=== PATIENT | female | born 1975 | race Caucasian/White ===

== ENCOUNTER 2020-04-12 19:31 | Emergency (ER) | payer OTHER, SELFPAY ==
[2020-04-12 19:45] VITALS: BP 142/85; PULSE 108; RESP 20; TEMP 36.4; O2SAT 99
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
== END 2020-04-12 20:06 | disposition home or self-care (01) ==
PROVIDERS: Emergency Provider Nurse Practitioner Adult Health
DX: L24.9 Irritant contact dermatitis, unspecified cause (principal)
CPT/HCPCS: 99213; G0463

== ENCOUNTER 2020-04-20 12:46 | Emergency (ER) | payer OTHER, SELFPAY ==
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
[2020-04-20 12:58] VITALS: BP 125/72; PULSE 109; RESP 20; TEMP 36.2; O2SAT 98
[2020-04-20 13:31] VITALS: PULSE 109; RESP 98
== END 2020-04-20 13:35 | disposition home or self-care (01) ==
PROVIDERS: Emergency Provider Nurse Practitioner Family
DX: R06.02 Shortness of breath (principal); F17.200 Nicotine dependence, unspecified, uncomplicated
CPT/HCPCS: 99213; G0463

== ENCOUNTER 2020-07-30 00:05 | Emergency (ER) | payer OTHER, SELFPAY ==
[2020-07-30 00:09] VITALS: BP 150/86; PULSE 86; RESP 20; TEMP 36.2; O2SAT 98
--- NOTE | 2020-07-30 00:51 | ED.SKABFB ---
HPI - Skin/Abscess/Foreign Bdy General Chief complaint: Skin/Abscess/Foreign Body Stated complaint: staph? lower R leg Time Seen by Provider: 07/30/20 00:21 History of Present Illness HPI narrative: Diffuse rash on all extremities for months. Very pruritic. She has been treated for scabies and dermatitis without resolution. She was also told that she may have bed bugs or ring worm. She reports that she has been staying with a friend and the house is very dirty. The friend seems to be unaffected. She has also developed 2 painful raised areas on the RLE. Related Data Home Medications Medication Instructions Recorded Confirmed triamcinolone acetonide applic TOPICAL 07/30/20 Allergies Allergy/AdvReac Type Severity Reaction Status Date / Time Penicillins Allergy Severe Rash, Verified 07/30/20 00:50 throat swells Review of Systems Review of Systems: All systems reviewed & are unremarkable except as noted in HPI and below Constitutional: Constitutional: Denies chills and Denies fever(s) Cardiovascular: Cardiovascular: Denies chest pain Respiratory: Respiratory: Denies dyspnea Gastrointestinal: Gastrointestinal: Denies nausea Integumentary/Breasts: Skin/Breast: Reports pruritus and Reports rash Neurologic: Reports system reviewed and no additional complaints, except as documented Allergic/Immunologic: Allergic/Immunologic: Denies lip swelling and Denies tongue swelling PMFSH Past Medical History Medical History Anxiety Chronic back pain Depression Surgical History Surgical History H/O adenoidectomy H/O tubal ligation History of hysterectomy Social History Social History Years smoked: 30 Smoking status: Current every day smoker Gender identity (if verbalized by the patient): Female Exam Const: General: no acute distress and alert Orientation/consciousness: patient oriented x3 HENMT: Head: normal to inspection Neck: Neck: normal visual inspection Resp: Effort & Inspection: normal respiratory effort Auscultation: clear to auscultation bilaterally Cardio: Rate: regular rate Rhythm: regular rhythm Skin: Other: She appears to have 3 seperate issues. Numerous heavily excoriated papules on all extremities. scaly mildly erythematous rash to feet. 2 raised erythematous areaes with central fluctuance on the RLE. Neuro: General: patient oriented x3, moves all extremities, no focal motor deficits and CN's II-XI intact bilaterally Gait exam (Neuro): Normal gait present Psych: Affect: Anxious affect present Course Vital Signs Vital signs: Vital Signs Temperature 36.2 C L 07/30/20 00:09 Pulse Rate 86 07/30/20 00:09 Respiratory Rate 20 07/30/20 00:09 Blood Pressure 150/86 H 07/30/20 00:09 Pulse Oximetry 98 07/30/20 00:09 Temperature 36.2 C L 07/30/20 00:09 Pulse Rate 78 07/30/20 02:05 Respiratory Rate 19 07/30/20 02:05 Blood Pressure 129/88 07/30/20 02:05 Pulse Oximetry 99 07/30/20 02:05 Procedures Abscess I/D lower extremity: Side (if applicable): right Local Anesthetic: lidocaine 1% and with epi Amount of anesthesia used (mL): 5 Technique: incised with #11 blade Amount of fluid expressed (mL): 3 Irrigation: Yes Packing used?: none I&D Results: Pus other: Local Anesthetic: lidocaine 1% and with epi Amount of anesthesia used (mL): 3 Technique: incised with #11 blade Amount of fluid expressed (mL): 1 Irrigation: Yes Packing used?: none I&D Results: Pus MDM - Skin/Abscess/Foreign Bdy MDM Narrative Medical decision making narrative: Primary rash most consistent with bed bug bites. Abscesses likely represent secondary infection. rash on feet appears to be tinea pedis. Medical Re
[2020-07-30] MEDS: MICONAZOLE NITRATE 2% CREAM 30 GM TUBE 1 APPLIC TOPICAL (01:16)
[2020-07-30 02:05] VITALS: BP 129/88; PULSE 78; RESP 19; O2SAT 99
== END 2020-07-30 02:05 | disposition home or self-care (01) ==
PROVIDERS: Emergency Provider Emergency Medicine
DX: L02.415 Cutaneous abscess of right lower limb (principal); L02.91 Cutaneous abscess, unspecified; B35.3 Tinea pedis; S40.862A Insect bite (nonvenomous) of left upper arm, initial encounter; S40.861A Insect bite (nonvenomous) of right upper arm, initial encounter; S80.862A Insect bite (nonvenomous), left lower leg, initial encounter; S80.861A Insect bite (nonvenomous), right lower leg, initial encounter; W57.XXXA Bitten or stung by nonvenomous insect and other nonvenomous arthropods, initial encounter; F17.200 Nicotine dependence, unspecified, uncomplicated
CPT/HCPCS: 10061; 99283; A9270

== ENCOUNTER 2024-09-27 02:03 | Emergency (ER) | payer OTHER, SELFPAY ==
--- OUTSIDE RECORDS SUMMARY | 2024-09-27 02:06 | XMS_ITS | Patient Health Record ---
Author Organization [facility] Address [address] [place] [address] Care Team Providers Care Management Manager Name Role Phone Newelissaarmaan Jaja Primary Care Provider [phone] Jeana Hemphill Unavailable [phone] Delmis Chiu Unavailable [phone] Ceferino Mendoza Unavailable [phone] Selene Acevedo Unavailable [phone] Allergies Allergen (clinical drug ingredient) Drug/Non Drug Allergy documented on EMR Reaction Allergy Type Onset Date Status amoxicillin amoxicillin (uncoded) anaphylaxis Allergy Active Latex latex (uncoded) skin burn/rash Allergy Active Results Component Value Reference Range Notes PDF Report Reviewed date:01/13/2024 11:38:57 AM Interpretation: Performing Lab:[facility], [address] [place] [address], Phone - [phone], Director - Adonay Notes/Report: PDF Report1 [facility] Comprehensive Drug Analysis, Urine Reviewed date:01/13/2024 11:39:42 AM Interpretation: Performing Lab:[facility], [address] [place] [address], Phone - [phone], Director - AtievaAnupam Notes/Report: Summary Report (Summary) FINAL ====== COMPREHENSIVE DRUG ANALYSIS,UR ====== Specimen Alert Note: Sample is inconsistent with human urine. ====== Test Result Flag Units NO DRUGS DETECTED. ====== Test Result Flag Units Ref Range Creatinine 21 mg/dL >=20 ====== For clinical consultation, please call . ====== PDF . PDF Report Reviewed date:05/01/2024 10:17:43 AM Interpretation: Performing Lab:[facility], [address] [place] [address], Phone - [phone], Director - Adonay Notes/Report: PDF Report1 [facility] Comprehensive Drug Analysis, Urine Reviewed date:05/01/2024 10:17:43 AM Interpretation:Abnormal Performing Lab:[facility], [address] [facility], Phone - [phone], Director - Adonay Notes/Report: Summary Report (Summary) FINAL ====== COMPREHENSIVE DRUG ANALYSIS,UR ====== Specimen Alert Note: Sample is inconsistent with human urine. ====== Test Result Flag Units NO DRUGS DETECTED. ====== Test Result Flag Units Ref Range Creatinine 110 mg/dL >=20 ====== For clinical consultation, please call . ====== PDF . Reason For Referral Reason Tool Analyst Diagnosis 1 Bipolar affective (F 31.9) Referral Organization [facility] Referring Provider First Name Delmis Referring Provider Last Name Aram Referring Provider Speciality Psychiatry Referred Provider Specialty Offal SeparatorAutomotive Glass Installer Notes Delmis Chiu Amanuel 08:26:14 PM > Client struggles with appointments, keeping up with medications, and multiple providers. She has mental health instability along with physical healthy instability. She would greatly benefit from assistance. Thank you., Ceferino Mendoza 06/07/2024 03:51:03 PM > Possibly a good candidate for Community Support, assess further and if needs are MH symptom based please complete CS Assessment and send to appropriate CS coordinator, Nava Pedroza 06/22/2024 11:25:18 AM > [facility] called client to discuss potential Community Support assistance. Client did not answer the phone, [facility] left a voicemail letting client know to call them back., Nava Pedroza 06/22/2024 04:15:16 PM > [facility] spoke with client and was able to fill out Community Support Needs assessment with them. [facility] sent the assessment referral to Annemarie Josue. Referral Priority Routine Reason Paperwork and Help a t Home Diagnosis 1 Bipolar affective (F 31.9) Referral Organization [facility] Referring Provider First Name Delmis Referring Provider Last Name Aram Referring Provider Speciality Psychiatry Referred Provider Specialty Offal SeparatorAutomotive Glass Installer Notes Delmis Chiu Amanuel 08/2024 02:23:08 PM > Client struggling with keeping and making various dr appts, keeping up with housework, taking care of herself. She has paperwork she is confused about r/t home-help. Thank you!, Selene Acevedo 07/12/2024 10:33:53 AM >Met with Christopher following appt with Delmis. Assisted in completion of her paperwork and provided to her for medical provider review and sign off. She is [facility] attributed, has significant medical comorbities and really struggles with medication management and social anxiety. Can [facility] provide additional support in connecting with [facility] for a patient educator and consider referral to [facility]? Clinical Notes Yessenia Real 03:00:55 PM >Sending to client's community support person assigned. Referral Priority Routine Medications Medication SIG (Take, Route, Frequency, Duration) Notes Start Date End Date Status Atorvastatin Calcium 20 MG 1 tablet Orally Once a day for 30 day(s) Active Insulin Glargine Solostar 100 UNIT/ML as directed Subcutaneous Unknown Albuterol Sulfate HFA Active linaGLIPtin 5 MG 1 tablet Orally Once a day Unknown Mavyret Unknown Pregabalin 100 MG 1 capsule Orally Once a day Active Albuterol-Budesonide Unknown Insulin Lispro Ambrosio KwikPen 75/25 Active Ketoconazole 2 % 1 application Externally Once a day Active Colace Not-Taking metFORMIN HCl 500 MG 1 tablet with a riaz l Orally twice a day Active Jardiance 25 MG 1 tablet in the morning Orally Once a day Active ALPRAZolam from a doctor in [place] Active Humira Not-Taking cloNIDine HCl 0.1 MG 1 tablet Orally twice a day for 30 days . Active QUEtiapine Fumarate ER 300 MG 1 tablet in the evening Orally Once a day for 30 days . Active traZODone HCl 100 MG 1-2 tablet at bedtime Orally Once a day for 30 days Active Adderall from a doctor in [place] Active Social History Tobacco Use: Social History Observation Description Date Details (start date - stop date) Current Smoker 05/10/1993 - NA Sex Assigned At : Social History Observation Description Sex Assigned At Female PRAPARE Question Answer Notes Date Completed/Updated: 06/14/2023 What is your current housing situation? I do not have housing (staying with others, in a hotel, in a fci, living outside on the street, on a beach, or in a park) Are you worried about losing your housing? No What is the highest level of school that you have finished? High school diploma or GED What is your current work situation? Unemployed and seeking work In the past year, have you o r any family members you live with been unable to get any of the following when it was really needed? Check all that apply I do not have problems meeting my needs Has lack of transportation k ept you from medical appointments, meetings, work or from getting things needed for daily living? No How often do you see or talk to people that you care about and feel close to? (For example: talking to friends on the phone, visiting friends or family, going to anabaptism or club meetings) 3 to 5 times a week How stressed are you? Stress is when someone feels tense, nervous, anxious, or can\t sleep at night because their mind is troubled Very much In the past year have you sp ent more than 2 nights in a row in a prison, nursing home, fci center, or juvenile correctional facility? No Are you a refugee? No What country are you from? [place] Do you feel physically and e motionally safe where you currently live? Yes In the past year, have you b een afraid of your partner or ex-partner? No PRAPARE Score: 7 Tobacco Control (Standard) Question Answer Notes Tobacco use: Current smoker When did you start smoking? 05/10/1993 How often do you smoke cigarettes? Every day How many cigarettes a day do you smoke? 5 or les s How soon after you wake up d o you smoke your first cigarette? 31-60 minutes Are you interested in quitting? Not ready to funmilayo t Additional Findings: Tobacco user Light cigarett e smoker (1-9 cigs/day) Problems Problem Type SNOMED Code ICD Code Onset Dates Problem Status W/U Status Risk Notes Problem Tobacco user (666692107) Nicotine dependence, unspecified, uncomplicated (F17.200) Active confirmed Problem Generalized anxiety disorder (53937502) Generalized anxiety disorder (F41.1) Active confirmed Problem Posttraumatic stress disorder (06855402) PTSD (post-traumatic stress disorder) (F43.10) Active confirmed Problem Overweight (408208115) Over weight (E66.3) Active confirmed Problem Alcohol use disorder (4940258951) Alcohol use disorder (F10.99) Active confirmed Problem Bipolar disorder (14734899) Bipolar affective (F31.9) Active confirmed Problem Sleep disturbance (47938145) Sleep disturbance, unspecified (G47.9) Active confirmed Problem Attention deficit hyperactivity disorder (022672533) Adult ADHD (F90.9) Active confirmed Vital Signs Heart Rate 124 /min 09/05/2024 Temperature 98.2 degrees Fahrenheit 08/08/2024 Respiratory Rate 16 /min 09/05/2024 Blood pressure diastolic 86 mm Hg 09/05/2024 Oximetry 98 % 09/05/2024 Height 65 in 09/05/2024 Blood pressure systolic 130 mm Hg 09/05/2024 Weight 184 lbs 09/05/2024 BMI 30.62 kg/m2 09/05/2024 Encounters Encounter Location Date Provider Diagnosis [facility] [address] [place] [address] 09/28/2023 Delmis Chiu Bipolar affective F31.9 ; Generalized anxiety disorder F41.1 ; PTSD (post-traumatic stress disorder) F43.10 ; Adult ADHD F90.9 ; Nicotine dependence, unspecified, uncomplicated F17.200 and Medication monitoring encounter Z51.81 [facility] [address] [place] [address] 10/19/2023 Delmis Chiu Generalized anxiety disorder F41.1 ; Medication monitoring encounter Z51.81 ; Bipolar affective F31.9 ; PTSD (post-traumatic stress disorder) F43.10 ; Adult ADHD F90.9 and Nicotine dependence, unspecified, uncomplicated F17.[address] [place] [address] 12/17/2023 Jeana Hemphill Bipolar affective F31.9 and Generalized anxiety disorder F41.[address] [facility] [address] 03/15/2024 Delmis Chiu Bipolar affective F31.9 ; Generalized anxiety disorder F41.1 and Sleep disturbance, unspecified G47.9 [facility] [address] [place] [address] 04/04/2024 Delmis Chiu Bipolar affective F31.9 ; Sleep disturbance, unspecified G47.9 and Generalized anxiety disorder F41.1 [facility] [address] [place] [address] 04/17/2024 Delmis Chiu Generalized anxiety disorder F41.1 [facility] [address] [place] [address] 05/02/2024 Delmis Chiu Bipolar affective F31.9 ; Sleep disturbance, unspecified G47.9 and Generalized anxiety disorder F41.1 [facility] [address] [place] [address] 05/30/2024 Delmis Chiu Bipolar affective F31.9 ; Sleep disturbance, unspecified G47.9 and Generalized anxiety disorder F41.1 [facility] [address] [place] [address] 07/11/2024 Delmis Chiu Bipolar affective F31.9 ; Sleep disturbance, unspecified G47.9 and Generalized anxiety disorder F41.1 [facility] [address] [place] [address] 07/11/2024 Selene Acevedo PTSD (post-traumatic stress disorder) F43.10 [facility] [address] [place] [address] 08/08/2024 Delmis Chiu Over weight E66.3 ; Bipolar affective F31.9 ; Sleep disturbance, unspecified G47.9 and Generalized anxiety disorder F41.1 [facility] [address] [place] [address] 09/05/2024 Delmis Chiu Sleep disturbance, unspecified G47.9 ; Bipolar affective F31.9 ; Generalized anxiety disorder F41.1 and Over weight E66.[address] [place] [address] 09/28/2023 Delmis Chiu [address] [place] [address] 10/19/[address] [address] 11/25/2023 Jaja Preston [address] [place] [address] 01/17/2024 Delmis Chiu [address] [place] [address] 04/10/2024 Jaja Preston [address] [place] [address] 04/13/2024 Delmis Chiu [address] [place] [address] 05/01/[address] [address] 07/03/2024 Ceferino Mendoza [facility] [address] [place] [address] 11/04/2023 Jeana Powers PTSD (post-traumatic stress disorder) F43.10 ; Bipolar affective F31.9 and Generalized anxiety disorder F41.1 [facility] [address] [place] [address] 07/10/2024 Delmis Chiu Bipolar affective F31.9 [facility] [address] [address] 07/10/2024 Delmis Chiu [facility] [address] [place] [address] 07/10/2024 Delmisdoug Chiu Assessments Encounter Date Diagnosis (ICD Code) Assessment Notes Treatment Notes Treatment Clinical Notes Section Notes 09/28/2023 Bipolar affective (ICD-10 - F31.9) Discussed to continue strictly monitoring blood glucose, and if levels worsen, client to let provider know in order to discuss other options in collab with railroad car repair supervisor Dr Ybarra with [facility]. 10/19/2023 Generalized anxiety disorder (ICD-10 - F41.1) PDMP checked without concerns. Discussed with 1mg tablets, client may cut in half, does not need fill per PDMP at this time. Client was on Xanax 1 mg TID with this provider hx of 1mg QID. 11/04/2023 PTSD (post-traumatic stress disorder) (ICD-10 - F43.10) 12/17/2023 Bipolar affective (ICD-10 - F31.9) reports she has been off all medication for 3 weeks due to relapse. Reports Abilify and Paxil not helpful. Asked for Xanax or Klonopin. In reviewing RX history, Dr Carter had prescribed 15 days of Xanax 1mg four times a day on 12/10/23, filled 12/10. Declined filling benzo. May self-administer medications or be administered own oral medications per [facility] protocols. Provided informed consent with understanding of side effects, adverse effects, risks and benefits as well as alternative treatments as previously discussed and with the above recommended medications & other aspects of the treatment program. Agrees to return sooner if symptoms worsen or suicidal or homicidal ideations occur. 03/15/2024 Bipolar affective (ICD-10 - F31.9) 04/04/2024 Bipolar affective (ICD-10 - F31.9) 04/17/2024 Generalized anxiety disorder (ICD-10 - F41.1) 05/02/2024 Bipolar affective (ICD-10 - F31.9) 05/30/2024 Bipolar affective (ICD-10 - F31.9) may look to decrease and stop Vraylar. client hx of stability with Seroquel- discussed risk for increase in appetite/glucose- client reports she will monitor well, call her railroad car repair supervisor after this appt, and continue to f/u with railroad car repair supervisor. Take as prescribed. Reviewed purpose (mood stability), benefits, and risks - low blood pressure, metabolic syndrome with high cholesterol or high blood sugars, change in cardiac conduction, nausea, vomiting, temporary or permanent movement disorders, and akathisia. 07/10/2024 Bipolar affective (ICD-10 - F31.9) 07/11/2024 Bipolar affective (ICD-10 - F31.9) may look to decrease and stop Vraylar, changing to every otehr day dosing. client hx of stability with Seroquel- discussed risk for increase in appetite/glucose- client reports she will monitor well, call her new railroad car repair supervisor after this appt to keep aware, and continue to f/u with railroad car repair supervisor. Plan to increase Seroquel. Take as prescribed. Reviewed purpose (mood stability), benefits, and risks - low blood pressure, metabolic syndrome with high cholesterol or high blood sugars, change in cardiac conduction, nausea, vomiting, temporary or permanent movement disorders, and akathisia. 07/11/2024 PTSD (post-traumatic stress disorder) (ICD-10 - F43.10) 08/08/2024 Over weight (ICD-10 - E66.3) 09/05/2024 Sleep disturbance, unspecified (ICD-10 - G47.9) 09/05/2024 Bipolar affective (ICD-10 - F31.9) client hx of stability with Seroquel- continue at this time. Client to f/u with railroad car repair supervisor, if sugar is above 300, client to go to the hospital for stability. Take as prescribed. Reviewed purpose (mood stability), benefits, and risks - low blood pressure, metabolic syndrome with high cholesterol or high blood sugars, change in cardiac conduction, nausea, vomiting, temporary or permanent movement disorders, and akathisia. Vraylar stopped due to THAO which was noted by client 08/08/2024 Bipolar affective (ICD-10 - F31.9) may look to decrease and stop Vraylar, changing to every otehr day dosing. client hx of stability with Seroquel- continue at this time. Client to f/u with railroad car repair supervisor, if sugar is above 300, client to go to the hospital for stability. Take as prescribed. Reviewed purpose (mood stability), benefits, and risks - low blood pressure, metabolic syndrome with high cholesterol or high blood sugars, change in cardiac conduction, nausea, vomiting, temporary or permanent movement disorders, and akathisia. 09/05/2024 Generalized anxiety disorder (ICD-10 - F41.1) Continue therapy. Client reports high anxiety. Discussed r/b/se of clonidine, monitor B/P 07/11/2024 Sleep disturbance, unspecified (ICD-10 - G47.9) Client reports she has been unable to get ramelteon due to insurance per her reports. Stopping this script. Start Seroquel. 05/30/2024 Sleep disturbance, unspecified (ICD-10 - G47.9) Client reports she has been unable to get ramelteon due to insurance per her reports. Stopping this script. Start Seroquel. 05/02/2024 Sleep disturbance, unspecified (ICD-10 - G47.9) 04/04/2024 Sleep disturbance, unspecified (ICD-10 - G47.9) 03/15/2024 Sleep disturbance, unspecified (ICD-10 - G47.9) 03/15/2024 Generalized anxiety disorder (ICD-10 - F41.1) Continue therapy. No controlled substances as client has failed UDS with no recognized as human urine. 11/04/2023 Bipolar affective (ICD-10 - F31.9) 12/17/2023 Generalized anxiety disorder (ICD-10 - F41.1) 10/19/2023 Medication monitoring encounter (ICD-10 - Z51.81) 09/28/2023 Generalized anxiety disorder (ICD-10 - F41.1) PDMP checked without concerns. Client was on Xanax 1 mg TID with this provider hx of 1mg QID (client reports hx of being on 10mg per day in the past). Plan to wean down with more stability noted. 09/28/2023 PTSD (post-traumatic stress disorder) (ICD-10 - F43.10) Restarting, was on BID. Does not tolerate IR form as causes headaches. 10/19/2023 Bipolar affective (ICD-10 - F31.9) Discussed to continue strictly monitoring blood glucose, and if levels worsen, client to let provider know in order to discuss other options in collab with railroad car repair supervisor Dr Ybarra with [facility]. Decreasing due to possible interaction at 30mg noted per client with starting Mavyret. Client has call with GI provider - to discuss with GI provider as well. 04/04/2024 Generalized anxiety disorder (ICD-10 - F41.1) Continue therapy. Client reports high anxiety. Will discuss tx options s/p UDS. 05/30/2024 Generalized anxiety disorder (ICD-10 - F41.1) Continue therapy. Client reports high anxiety. Discussed UDS results inconsistent with human urine and not doing controlled subs. Discussed r/b/se of clonidine, monitor B/P 05/02/2024 Generalized anxiety disorder (ICD-10 - F41.1) Continue therapy. Client reports high anxiety. Discussed UDS results inconsistent with human urine and not doing controlled subs. Discussed r/b/se of clonidine, monitor B/P 07/11/2024 Generalized anxiety disorder (ICD-10 - F41.1) Continue therapy. Client reports high anxiety. Discussed UDS results inconsistent with human urine and not doing controlled subs. Discussed r/b/se of clonidine, monitor B/P 09/05/2024 Over weight (ICD-10 - E66.3) 08/08/2024 Sleep disturbance, unspecified (ICD-10 - G47.9) 11/04/2023 Generalized anxiety disorder (ICD-10 - F41.1) 08/08/2024 Generalized anxiety disorder (ICD-10 - F41.1) Continue therapy. Client reports high anxiety. Discussed UDS results inconsistent with human urine and not doing controlled subs. Discussed r/b/se of clonidine, monitor B/P 10/19/2023 PTSD (post-traumatic stress disorder) (ICD-10 - F43.10) Continue at this time, hx of being on this dose BID. Does not tolerate IR form as causes headaches per client. 09/28/2023 Adult ADHD (ICD-10 - F90.9) Client not working at this time. Discussed Adderall not recommended by this provider with current symptoms more indicitive of rosenda and anxiety. Client v/u. 09/28/2023 Nicotine dependence, unspecified, uncomplicated (ICD-10 - F17.200) 10/19/2023 Adult ADHD (ICD-10 - F90.9) Client not working at this time. Discussed Adderall not recommended by this provider with current symptoms more indicitive of rosenda and anxiety. Client v/u. 10/19/2023 Nicotine dependence, unspecified, uncomplicated (ICD-10 - F17.200) 09/28/2023 Medication monitoring encounter (ICD-10 - Z51.81) 09/28/2023 Other Reasons, potential benefits, potential risks, interactions and side effects of all medications were discussed. The Patient/Guardian asked appropriate questions, appeared to understand the answers, and decided to accept the treatment and continue being followed. Alternatives and expected course without treatment were reviewed. The Patient/Guardian is aware of the need to contact the office or return for an earlier appointment if any problems or concerns arise. May also contact the 24-hour crisis hotline ([facility]), refer to the closest emergency room or call 911 if new symptoms arise of existing symptoms worsen. The Patient/Guardian is aware that this would apply to symptoms like: suicidal ideation, homicidal ideation, high risk behaviors, manic symptoms, psychotic symptoms, physical symptoms, or any other symptoms that may be dangerous to self or others. Greater than 50% of time spent on coordination and counseling where psychopharmacology as well as psychotherapeutic interventions were discussed along with review of treatments in the past. Education provided concerning need for adequate hydration. Patient/Guardian verbalized understanding of education, treatment plan and follow up. This session was completed telephonically with client/parental/guard aaliyah consent: Unable to determine movement status, assess appearance, affect, AIMS, or vital signs. 10/19/2023 Other Reasons, potential benefits, potential risks, interactions and side effects of all medications were discussed. The Patient/Guardian asked appropriate questions, appeared to understand the answers, and decided to accept the treatment and continue being followed. Alternatives and expected course without treatment were reviewed. The Patient/Guardian is aware of the need to contact the office or return for an earlier appointment if any problems or concerns arise. May also contact the 24-hour crisis hotline ([facility]), refer to the closest emergency room or call 911 if new symptoms arise of existing symptoms worsen. The Patient/Guardian is aware that this would apply to symptoms like: suicidal ideation, homicidal ideation, high risk behaviors, manic symptoms, psychotic symptoms, physical symptoms, or any other symptoms that may be dangerous to self or others. Greater than 50% of time spent on coordination and counseling where psychopharmacology as well as psychotherapeutic interventions were discussed along with review of treatments in the past. Education provided concerning need for adequate hydration. Patient/Guardian verbalized understanding of education, treatment plan and follow up. 03/15/2024 Other Reasons, potential benefits, potential risks, interactions and side effects of all medications were discussed. The Patient/Guardian asked appropriate questions, appeared to understand the answers, and decided to accept the treatment and continue being followed. Alternatives and expected course without treatment were reviewed. The Patient/Guardian is aware of the need to contact the office or return for an earlier appointment if any problems or concerns arise. May also contact the 24-hour crisis hotline ([facility]), refer to the closest emergency room or call 911 if new symptoms arise of existing symptoms worsen. The Patient/Guardian is aware that this would apply to symptoms like: suicidal ideation, homicidal ideation, high risk behaviors, manic symptoms, psychotic symptoms, physical symptoms, or any other symptoms that may be dangerous to self or others. Greater than 50% of time spent on coordination and counseling where psychopharmacology as well as psychotherapeutic interventions were discussed along with review of treatments in the past. Education provided concerning need for adequate hydration. Patient/Guardian verbalized understanding of education, treatment plan and follow up. This session was completed telephonically with client/parental/guard aaliyah consent: Unable to determine movement status, assess appearance, affect, AIMS, or vital signs. 04/04/2024 Other Reasons, potential benefits, potential risks, interactions and side effects of all medications were discussed. The Patient/Guardian asked appropriate questions, appeared to understand the answers, and decided to accept the treatment and continue being followed. Alternatives and expected course without treatment were reviewed. The Patient/Guardian is aware of the need to contact the office or return for an earlier appointment if any problems or concerns arise. May also contact the 24-hour crisis hotline ([facility]), refer to the closest emergency room or call 911 if new symptoms arise of existing symptoms worsen. The Patient/Guardian is aware that this would apply to symptoms like: suicidal ideation, homicidal ideation, high risk behaviors, manic symptoms, psychotic symptoms, physical symptoms, or any other symptoms that may be dangerous to self or others. Greater than 50% of time spent on coordination and counseling where psychopharmacology as well as psychotherapeutic interventions were discussed along with review of treatments in the past. Education provided concerning need for adequate hydration. Patient/Guardian verbalized understanding of education, treatment plan and follow up. This session was completed telephonically with client/parental/guard aaliyah consent: Unable to determine movement status, assess appearance, affect, AIMS, or vital signs. 05/02/2024 Other Reasons, potential benefits, potential risks, interactions and side effects of all medications were discussed. The Patient/Guardian asked appropriate questions, appeared to understand the answers, and decided to accept the treatment and continue being followed. Alternatives and expected course without treatment were reviewed. The Patient/Guardian is aware of the need to contact the office or return for an earlier appointment if any problems or concerns arise. May also contact the 24-hour crisis hotline ([facility]), refer to the closest emergency room or call 911 if new symptoms arise of existing symptoms worsen. The Patient/Guardian is aware that this would apply to symptoms like: suicidal ideation, homicidal ideation, high risk behaviors, manic symptoms, psychotic symptoms, physical symptoms, or any other symptoms that may be dangerous to self or others. Greater than 50% of time spent on coordination and counseling where psychopharmacology as well as psychotherapeutic interventions were discussed along with review of treatments in the past. Education provided concerning need for adequate hydration. Patient/Guardian verbalized understanding of education, treatment plan and follow up. 05/30/2024 Other Reasons, potential benefits, potential risks, interactions and side effects of all medications were discussed. The Patient/Guardian asked appropriate questions, appeared to understand the answers, and decided to accept the treatment and continue being followed. Alternatives and expected course without treatment were reviewed. The Patient/Guardian is aware of the need to contact the office or return for an earlier appointment if any problems or concerns arise. May also contact the 24-hour crisis hotline ([facility]), refer to the closest emergency room or call 911 if new symptoms arise of existing symptoms worsen. The Patient/Guardian is aware that this would apply to symptoms like: suicidal ideation, homicidal ideation, high risk behaviors, manic symptoms, psychotic symptoms, physical symptoms, or any other symptoms that may be dangerous to self or others. Greater than 50% of time spent on coordination and counseling where psychopharmacology as well as psychotherapeutic interventions were discussed along with review of treatments in the past. Education provided concerning need for adequate hydration. Patient/Guardian verbalized understanding of education, treatment plan and follow up. 07/11/2024 Other Reasons, potential benefits, potential risks, interactions and side effects of all medications were discussed. The Patient/Guardian asked appropriate questions, appeared to understand the answers, and decided to accept the treatment and continue being followed. Alternatives and expected course without treatment were reviewed. The Patient/Guardian is aware of the need to contact the office or return for an earlier appointment if any problems or concerns arise. May also contact the 24-hour crisis hotline ([facility]), refer to the closest emergency room or call 911 if new symptoms arise of existing symptoms worsen. The Patient/Guardian is aware that this would apply to symptoms like: suicidal ideation, homicidal ideation, high risk behaviors, manic symptoms, psychotic symptoms, physical symptoms, or any other symptoms that may be dangerous to self or others. Greater than 50% of time spent on coordination and counseling where psychopharmacology as well as psychotherapeutic interventions were discussed along with review of treatments in the past. Education provided concerning need for adequate hydration. Patient/Guardian verbalized understanding of education, treatment plan and follow up. 07/11/2024 Other Clinician met w ith client to assess needs and preferences for services. Clinician explored behavioral health goals, history of engagement, psychiatric history and diagnosis. Clinician provided education on supportive services available and completed referrals on client's behalf. 08/08/2024 Other Reasons, potential benefits, potential risks, interactions and side effects of all medications were discussed. The Patient/Guardian asked appropriate questions, appeared to understand the answers, and decided to accept the treatment and continue being followed. Alternatives and expected course without treatment were reviewed. The Patient/Guardian is aware of the need to contact the office or return for an earlier appointment if any problems or concerns arise. May also contact the 24-hour crisis hotline ([facility]), refer to the closest emergency room or call 911 if new symptoms arise of existing symptoms worsen. The Patient/Guardian is aware that this would apply to symptoms like: suicidal ideation, homicidal ideation, high risk behaviors, manic symptoms, psychotic symptoms, physical symptoms, or any other symptoms that may be dangerous to self or others. Greater than 50% of time spent on coordination and counseling where psychopharmacology as well as psychotherapeutic interventions were discussed along with review of treatments in the past. Education provided concerning need for adequate hydration. Patient/Guardian verbalized understanding of education, treatment plan and follow up. 09/05/2024 Other Reasons, potential benefits, potential risks, interactions and side effects of all medications were discussed. The Patient/Guardian asked appropriate questions, appeared to understand the answers, and decided to accept the treatment and continue being followed. Alternatives and expected course without treatment were reviewed. The Patient/Guardian is aware of the need to contact the office or return for an earlier appointment if any problems or concerns arise. May also contact the 24-hour crisis hotline ([facility]), refer to the closest emergency room or call 911 if new symptoms arise of existing symptoms worsen. The Patient/Guardian is aware that this would apply to symptoms like: suicidal ideation, homicidal ideation, high risk behaviors, manic symptoms, psychotic symptoms, physical symptoms, or any other symptoms that may be dangerous to self or others. Greater than 50% of time spent on coordination and counseling where psychopharmacology as well as psychotherapeutic interventions were discussed along with review of treatments in the past. Education provided concerning need for adequate hydration. Patient/Guardian verbalized understanding of education, treatment plan and follow up. Plan Of Treatment No Information Insurance Providers Payer Name Payer Address Payer Phone Subscriber Number Group Number Insured Name Patient Relationship to Insured Coverage Start Date Coverage End Date [facility] Att Claims Department [address] [place] [address] [phone] [id number] Retzer, Christopher Self - patient is the insured 4 [employer] Attn Claims Department [address] [place] [address] [phone] [id number] Christopher Valles Self - patient is the insured 4 [employer] Att[employer] Claims Department [address] [place] [address] [phone] [id number] Christopher Valles Self - patient is the insured 5 Medications Administered Medication Instructions Date of Administration Dosage Notes Vivitrol 05/17/2023 380 mg Ilia, Luis othea 05/17/2023 03:59:06 PM > Patient tolerated injection to the left gluteus well, minimal discomfort observed and reported. Medical (General) History Medical History History ICD Code psoriasis bipolar disorder Anxiety disorder osteoporosis eczema hepatitis c cataract Surgical History Surgery Date(Month/Year) Ear tubes Adnoidectomy Tubes tied Gland removed HYSTERECTOMY/REVISE VAGINA cataract surgery 04/2024 Hospitalization History Reason Date(Month/Year) New vision-detox
--- OUTSIDE RECORDS SUMMARY | 2024-09-27 03:04 | XMS_ITS | Referral Summary ---
Author Organization [facility] Address [address] [place] [id number] Care Team Providers Care Router Tender Name Role Phone Marybeth Rueda MD Primary Care Provider [phone] Encounters Date Type Department Care Team Description 09/08/2024 2:15 PM CDT Clinical Support [facility] [address] [place] [address] Outpatient Health [address] [place] [address] Rash and other nonspecific skin eruption 09/06/2024 2:15 PM CDT Clinical Support [facility] [address] [place] [address] [place] [phone] Rash and other nonspecific skin eruption 09/04/2024 2:15 PM CDT Clinical Support [facility] [address] [place] [address] Health [address] [place] [phone] Rash and other nonspecific skin eruption 08/29/2024 [facility]phone [facility] [address] [place] [address] Health 4th Floor [address] [place] [address] Fabiola Mina Scheduling Appointments 08/28/2024 2:15 PM CDT Clinical Support [facility] [address] [place] [address] Outpatient Health [address] [place] [address] Rash and other nonspecific skin eruption 08/12/2024 Telephone [facility] [address] [place] [address] 4th Floor [address] [place] [address] Fabiola Mina PODIATRY REFERRAL 07/26/2024 2:15 PM CDT Clinical Support [facility] Outpatient Health [address] [place] [address] Rash and other nonspecific skin eruption 07/03/2024 2:15 PM CONTROL DIRECTOR Clinical Support [facility] Outpatient Health [address] [place] [address] Rash and other nonspecific skin eruption from Last 3 Months Allergies Active Allergy Reactions Criticality Noted Date Comments Adhesive Itching,Rash Medium 05/20/1989 Latex Hives,Itching,Other (See comments),Rash High 05/19/1989 Penicillins Anxiety High 09/02/2009 Sulfamethoxazole-Trime thoprim Rash,Shortness of breath,Swelling High 01/28/2024 HTN and burning sensation Medications albuterol 2.5 mg /3 mL (0.083 %) nebulizer solution Albuterol Sulfate (2.5 MG/3ML) 0.083% Inhalation Nebulization solution QTY: 0 Days: 0 Refills: 0 Written: 12/08/16 Patient Instructions: 12/09/19 17 Active albuterol HFA (PROVENTIL HFA,VENTOLIN HFA,PROAIR HFA) 90 mcg/actuation inhaler Ventolin HFA 108 (90 Base) MCG/ACT Inhalation Aerosol Solution QTY: 0 Days: 0 Refills: 0 Written: 12/08/16 Patient Instructions: 12/09/19 17 Active ALPRAZolam (XANAX) 1 mg tablet Take 1 tablet (1 mg total) by mouth 3 (three) times a day 12/11/19 22 Active apremilast 10 mg (4)-20 mg (4)-30 mg (47) tablets,dose packIndications: Guttate psoriasis Start Otezla; Day 1 - 10mg AM; Day 2 - 10mg AM, 10mg PM; Day 3 - 10mg AM, 20mg PM; Day 4 - 20mg AM, 20mg PM; Day 5 - 20mg AM, 30mg PM; Day 6 - 30mg twice a day 55 tablet 01/02/20 22 Active Additional Information Patient not taking.Reported on 10/14/2022 dextroamphetamin e-amphetamine XR (ADDERALL XR) 30 mg 24 hr capsule Take by mouth daily 07/03/19 23 Active ibuprofen (ADVIL,MOTRIN) 200 mg tab/cap as needed 02/27/20 17 Active PARoxetine CR (PAXIL-CR) 12.5 mg 24 hr tablet Take 1 tablet (12.5 mg total) by mouth 2 (two) times a day 07/05/[address] (VOLTAREN) 75 mg EC tablet Take 1 tablet (75 mg total) by mouth 2 (two) times a day 60 tablet 11 07/23/19 23 Active Trulicity 1.5 mg/0.5 mL pen injector ADMINISTER 1.5 MG UNDER THE SKIN 1 TIME A WEEK Active insulin lispro (HumaLOG, ADMELOG) 100 unit/mL pen for injection 10 units before each meal; correctional factor insulin of 1:25 if >150 mg/dL, up to 50 units/day 07/26/19 24 Active LANTUS 100 unit/mL (3 mL) pen for injection ADMINISTER 30 UNITS UNDER THE SKIN EVERY NIGHT Active metFORMIN (GLUCOPHAGE) 500 mg tablet Take 1 tablet (500 mg total) by mouth 06/21/19 24 Active metroNIDAZOLE (FLAGYL) 500 mg tablet metronidazole 500 mg tablet Active naltrexone microspheres (VivitroL) 380 mg suspension,exten ded rel recon Once a month 05/17/19 24 Active triamcinolone (KENALOG) 0.1 % ointment Apply topically 2 (two) times a day as needed for rash FOR RASH ON ARMS/LEGS 454 g 1 10/28/19 24 Active mupirocin (BACTROBAN) 2 % ointment Apply topically 3 (three) times a day To open sores on the arms/legs 22 g 3 10/28/19 24 Active doxycycline (VIBRAMYCIN) 100 mg capsule Take 1 tablet/capsule (100 mg total) by mouth 2 (two) times a day 20 capsule 01/14/20 24 Active ketoconazole (NIZORAL) 2 % creamIndications :fungal infection of skin Apply topically daily TO FEET TWICE DAILY 60 g 11 03/23/20 24 Active adalimumab (HUMIRA, CF,) 80 mg/0.8 mL-40 mg/0.4 mL pen injector kit Inject 1 (one) 80mg pen on day 1, then 1 (one) 40mg pen on day 8 & 22 1 kit 12/18/20 24 Active adalimumab (Humira,CF, Pen) 40 mg/0.4 mL pen injector kit Inject 1 PEN (40 mg) under the skin every 14 days 2 each 5 04/26/20 24 Active alcohol swabs (Alcohol Prep Pads) pads, medicated USE TO TEST BLOOD GLUCOSE TWICE DAILY 05/14/19 24 Active atorvastatin (LIPITOR) 20 mg tablet Take 1 tablet (20 mg total) by mouth daily Active OneTouch Verio test strips strip 2 (two) times a day 05/31/19 25 Active Dexcom G7 Sensor device USE 1 SENSOR EVERY 10 DAYS 05/31/19 25 Active Jardiance 25 mg tablet Take 1 tablet (25 mg total) by mouth daily Active fluconazole (DIFLUCAN) 150 mg tablet Take 1 tablet (150 mg total) by mouth once a week 01/12/20 24 025 Active insulin glargine 100 unit/mL (3 mL) pen for injection ADMINISTER 30 UNITS UNDER THE SKIN EVERY DAY IN THE EVENING 09/22/19 24 Active OneTouch Delica Plus Lancet 33 gauge misc USE TO TEST BLOOD GLUCOSE TWICE DAILY 05/31/19 25 Active TRUEplus Pen Needle 32 gauge x 5/32 needle USE FOUR TIMES DAILY DIRECTED 06/04/19 25 Active QUEtiapine XR (SEROquel XR) 150 mg 24 hr tablet daily 05/30/19 25 Active traZODone (DESYREL) 100 mg tablet daily 12/17/19 24 Active Active Problems Problem Noted Date Diagnosed Date FDC (current) use of immunosuppressive bio logic 06/20/2024 Psoriatic arthritis 06/20/2024 High risk medication use 06/20/2024 Chronic hepatitis C without hepatic coma 023 Assessment & Plan (07/22/2022 2:57 PM CDT): This is a new diagnosis today. These labs were checked by Dermatology prior to starting on disease modifying agents. She denies any history of IV drug use. She thinks this was transmitted sexually. We discussed hepatitis-C and need for treatment. We discussed that we can not use any disease modifying agents for treatment of psoriatic arthritis until she receives hepatitis-C treatment as there is risk to develop fulminant hepatitis. If placed an urgent referral to hepatology so she can be seen sooner since her psoriatic arthritis treatment will be delayed until she is completely treated and viral load is 0. She is very uncomfortable in regards to her psoriatic arthritis. 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 Difficult to say if related to psoriasis or hepatitis-C, which is also known to cause an inflammatory arthritis. Unfortunately, we are limited in our treatment options until her hepatitis-C is treated, see below. I have messaged Dermatology. They are going to move forward with her phototherapy. They would prefer she not start on steroids due to high-risk of rebound psoriasis once stopped. We will send in diclofenac for her inflammatory arthritis now, unfortunately, other treatments are going to be on hold until hepatitis C is treated. Social History Tobacco Use Types Packs/Day Years Used Date Smoking Tobacco: Every Day Cigarettes 0.3 28 Tobacco Cessation:Ready to Q uit: Yes; Counseling Given: No AUDIT-C Answer Date Recorded Q1: How often do you have a drink containing alcohol? Never 03/23/2024 Q2: How many drinks containi ng alcohol do you have on a typical day when you are drinking? Patient does not drink Q3: How often do you have si x or more drinks on one occasion? Never 03/23/2024 Hunger Vital Sign Answer Date Recorded Within the past 12 months, y ou worried that your food would run out before you got the money to buy more. Never true 03/23/20 24 Within the past 12 months, t he food you bought just didn't last and you didn't have money to get more. Never true 03/23/2024 Personal Safety Answer Date Recorded Have you ever been in or are you currently in a harmful physical or emotional relationship or is someone making you feel afraid or unsafe? Denies 01/13/2024 Comments Unknown Sex and Gender Information Value Date Recorded Sex Assigned at Not on file Legal Sex Female 5:32 AM CONTROL DIRECTOR Gender Identity Female 10/14/2022 10:38 AM CDT Sexual Orientation Straight 10/14/2022 10 :38 AM CDT Last Filed Vital Signs Vital Sign Reading Time Taken Comments Blood Pressure 156/90 06/20/2024 2:02 PM CONTROL DIRECTOR Pulse 112 06/20/2024 2:02 PM CONTROL DIRECTOR Temperature 36.8 C (98.2 F) 06/20/2024 2:02 PM CONTROL DIRECTOR Respiratory Rate 18 01/13/2024 11:55 PM CDT Oxygen Saturation 100% 01/13/2024 11:55 PM CDT Inhaled Oxygen Concentration - - Weight 82.3 kg (181 lb 6.4 oz) 06/20/2024 2:02 P M CONTROL DIRECTOR Height 162.6 cm (5' 4 ) 06/20/2024 2:02 PM CONTROL DIRECTOR Body Mass Index 31.14 06/20/2024 2:02 PM CONTROL DIRECTOR Plan of Treatment Not on file Procedures Procedure Name Priority Date/Time Associated Diagnosis Comments PHOTOTHERAPY TREATMENT Routine 5 3:01 PM CDT Rash and other nonspecific skin eruption PHOTOTHERAPY TREATMENT Routine 5 2:31 PM CDT Rash and other nonspecific skin eruption PHOTOTHERAPY TREATMENT Routine 5 2:55 PM CDT Rash and other nonspecific skin eruption PHOTOTHERAPY TREATMENT Routine 5 2:40 PM CDT Rash and other nonspecific skin eruption PHOTOTHERAPY TREATMENT Routine 5 2:18 PM CDT Rash and other nonspecific skin eruption PHOTOTHERAPY TREATMENT Routine 5 2:38 PM CONTROL DIRECTOR Rash and other nonspecific skin eruption COMPREHENSIVE METABOLIC PANEL Routine 06/20/2024 2:57 PM CONTROL DIRECTOR Psoriasis Psoriatic arthritis (HCC) HEPATITIS C ANTIBODY Routine 07/18/2022 12:36 PM CONTROL DIRECTOR Guttate psoriasis from Last 3 Months or Most Recently Relevant to Health Maintenance Results * Phototherapy Treatment - (09/08/2024 3:01 PM CDT) us Dvaina Stanford MD PhD DERM PROCEDURE ORDERAB LES Final Result * Phototherapy Treatment - (09/06/2024 2:31 PM CDT) us Davina Stanford MD PhD DERM PROCEDURE ORDERAB LES Final Result * Phototherapy Treatment - (09/04/2024 2:55 PM CDT) Result Mega Stanford MD PhD DERM PROCEDURE ORDERAB LES Final Result * Phototherapy Treatment - (08/28/2024 2:40 PM CDT) Result Mega Stanford MD PhD DERM PROCEDURE ORDERAB LES Final Result * Phototherapy Treatment - (07/26/2024 2:18 PM CDT) Result Mega Stanford MD PhD DERM PROCEDURE ORDERAB LES Final Result * Phototherapy Treatment - (07/03/2024 2:38 PM CONTROL DIRECTOR) Result Mega Stanford MD PhD DERM PROCEDURE ORDERAB LES Final Result * (ABNORMAL) Comprehensive metabolic panel (06/20/2024 2:57 PM CONTROL DIRECTOR) Total Protein 7.9 6.1 - 8.4 g/dL [facility] Albumin 4.3 3.5 - 5.2 g/dL [facility] Calcium 9.3 8.6 - 10.3 mg/dL [facility] BUN 16 7 - 23 mg/dL [facility] Total Bilirubin 0.30 0.20 - 1.40 mg/dL [facility] Alk Phos, Total 119 35 - 129 IU/L [facility] AST (SGOT) 23 11 - 47 IU/L [facility] ALT (SGPT) 24 6 - 53 IU/L [facility] Creatinine 0.75 0.60 - 1.10 mg/dL [facility] Sodium 140 135 - 145 mmol/L [facility] Potassium 3.9 3.3 - 5.1 mmol/L [facility] Chloride 102 95 - 107 mmol/L [facility] CO2 Content 23 21 - 29 mmol/L [facility] Glucose 223(H) 64 - 99 mg/dL [facility] Comment: NONFASTING GLUCOSE RANGE = 64-199 mg/dL FASTING GLUCOSE 64 - 99 = NORMAL FASTING GLUCOSE 100 - 125 = IMPAIRED FASTING GLUCOSE FASTING GLUCOSE >=126 = PROVISIONAL DIAGNOSIS OF DIABETES eGFR >90.0 >60.0 mL/min/1.7 3 m2 [facility] Blood 06/20/2024 2:57 PM CONTROL DIRECTOR 06/20/2024 3:18 PM CONTROL DIRECTOR us Elijah Lombardo MD PhD LAB BLOOD ORDERABLE S Final Result [facility] * (ABNORMAL) Hepatitis C antibody (07/18/2022 12:36 PM CONTROL DIRECTOR) Hep C Ab REACTIVE( A) NON-REACT ERIC [facility] SIGNAL TO CUT-OFF >11.00(H) <1.00 [facility] Comment: Based on this result, the sample will be tested for HCV RNA by a Nucleic Acid Amplification Test (NAAT) to determine if the patient has a current active infection. Blood 07/18/2022 12:3 6 PM CONTROL DIRECTOR 07/18/2022 12:39 PM CONTROL DIRECTOR Narrative [facility] - 07/22/2022 1:31 AM CDT FASTING:YES FASTING: YES us Odilia Tomas MD LAB MICROBIOLOGY - GENERAL ORDERABLES Final Result [facility] [address] [place] [address] from Last 3 Months or Most Recently Relevant to Health Maintenance Insurance [facility] Care Teams Router Tender Relationship Specialty Start Date End Date Marybeth Rueda MD [address] [place] [address] PCP - General Family Medicine 01/14/24
--- OUTSIDE RECORDS SUMMARY | 2024-09-27 03:04 | XMS_ITS ---
Author Organization [facility] Address [address] [place] [address] Phone Care Team Providers Care Sourcing Manager Name Role Phone Marizol Boyle Unavailable Unavailab Jasvir Anthony MD Unavailable Martin Ybarra MD Unavailable Danae Wu APRN, BEVERAGE INSPECTION MACHINE TENDER Unavailable Joyce Canas APRN, BEVERAGE INSPECTION MACHINE TENDER Primary Care Provider [phone] Ambulatory Complex Care Management Status:Enrolled (Active) Start date:06/02/2023 Enrollment date:06/14/2023 Enrollment reason:Identified using referral data Current support & services provided:[employer] Care Managed Related social drivers of health:Intimate Partner Violence, Social Connections, Tobacco Use, Financial Resource Strain, Depression, Stress, Physical Activity, Food Insecurity, Transportation Needs, Housing Stability, Utilities Case Team Name Relationship Phone Marizol SEE [employer] Intern[employer] Global Climate Change Researcher (Responsible Staff) Continued Care and Services Coordination
--- OUTSIDE RECORDS SUMMARY | 2024-09-27 03:04 | XMS_ITS | Encounter Summary ---
Author Organization [facility] Address [address] [place] [address] Phone Care Team Providers Care Stage Technician Name Role Phone Jacob Price MD Primary Care Provider [phone] Provider, None Primary Care Provider Unavailabl Marybeth Ring MD Primary Care Provider [phone] Marizol Boyle COLOR PRINTER OPERATOR Unavailable Unavailab Jasvir Anthony MD Unavailable Martin Ybarra MD Unavailable Thong Rodriguez MD Unavailable Danae Wu APRN, [facility] Unavailable Joyce Canas APRN, [employer] Primary Care Provider Reason for Visit * Reason Comments Medication Refill Encounter Details Date Type Department Care Team (Late st Contact Info) Description 03/12/2020 Refill [facility] - Internal Medicine - [place] [address] [place] [address] Jacob Price MD [address] [place] [address] Medication Refill Social History Tobacco Use Types Packs/Day Years Used Date Smoking Tobacco: Every Day Cigarettes Smokeless Tobacco: Never Alcohol Use Standard Drinks/Week Comments No 0 (1 standard drink = 0.6 oz pur e alcohol) 3-5 WEEKLY Comments No Sex and Gender Information Value Date Recorded Sex Assigned at Female 05/14/2023 9:16 PM SKIMMER REVERBERATORY Legal Sex Female 11:25 PM CDT Gender Identity Female 05/14/2023 9:16 PM SKIMMER REVERBERATORY Sexual Orientation Straight 05/14/2023 9: 16 PM SKIMMER REVERBERATORY documented as of this encounter Miscellaneous Notes * Telephone Encounter - Danae Lane RN - 03/13/2020 8:10 AM CST Please review and sign. MER REVERBERATORY documented in this encounter Plan of Treatment Upcoming Encounters Date Type Department Care Team (Late st Contact Info) Description 10/06/2024 11:30 AM CDT Office Visit [facility] Medical Group - Gastroenterology - [place] [address] [place] [address] Danae Wu, CRTS, [facility] [address] [place] [address] 10/10/2024 2:00 PM CDT Office Visit [facility] Medical [facility] - Endocrinology - [place] [address] [place] [address] Martin Ybarra MD #[address] [address] 11/21/2024 4:45 PM CDT Office Visit [facility] - Primary Care - [place] [address] [place] [phone] Joyce Canas, CRTS, [employer] [address] [place] [address] documented as of this encounter Visit Diagnoses Not on filedocumented in this encounter Additional Health Concerns Infection Onset Date Last Indicated Resolved Time COVID - 19 01/12/2024 01/12/2024 01/12/2024 10:1 9 AM CDT documented as of this encounter Care Teams Stage Technician Relationship Specialty Start Date End Date Jacob Price MD [address] [place] [address] PCP - General Internal Medicine 05/05/15 05/03/20 Provider, [facility] PCP - General 05/04/20 06/01/23 Marybeth Rueda MD [address] [place] [address] PCP - General Family Medicine 06/02/23 07/24/24 Joyce Canas APRN, [employer] [address] [place] [address] PCP - General Certified Nurse Practitioner 07/25/24 Marizol Boyle, COLOR PRINTER OPERATOR MA Wildlife Biology Technician Denture Contour Wire Specialist 06/03/23 Jasvir Quintero MD #[address] [address] Consulting Physician Colon and Rectal Surgery 07/09/23 Martin Ybarra MD #[address] [address] Consulting Physician Endocrinology 07/15/23 Thong Rodriguez MD #[address] [address] Consulting Physician Gastroenterology 07/08/23 07/27/24 Danae Wu APRN, [facility] [employer]NER [address] [place] [address] Nurse Practitioner Advanced Practice Nurse 09/01/23 documented as of this encounter
--- OUTSIDE RECORDS SUMMARY | 2024-09-27 03:04 | XMS_ITS | Clinical Summary ---
Author Organization [facility] Address [address] [place] [phone] Care Team Providers Care Box Shook Patcher Name Role Phone Marybeth Rueda MD Primary Care Provider [phone] Allergies Active Allergy Reactions Criticality Noted Date [...] on day 8 & 22 1 kit 04/26/20 24 Active adalimumab (Humira,CF, Pen) 40 mg/0.4 [...] (two) times a day 05/31/19 25 Active GliaCure G7 Sensor device USE 1 SENSOR EVERY [...] Active Problems Problem Noted Date Diagnosed Date skilled nursing (current) use of immunosuppressive bio logic 06/20/2024 [...] on hold until hepatitis C is treated. Encounters Date Type Department Care Team Description 09/08/2024 2:15 PM CDT Clinical Support [facility] Dermatology [address] [place] [address] [address] [place] [address] Rash and other nonspecific skin eruption 09/06/2024 2:15 PM CDT Clinical Support [facility] Dermatology [address] [place] [address] [address] [place] [address] Rash and other nonspecific skin eruption 09/04/2024 2:15 PM CDT Clinical Support [facility] Dermatology [address] [place] [address] [address] [place] [address] Rash and other nonspecific skin eruption 08/29/2024 Telephone [facility] [address] [place] [address] 4th Floor [address] [place] [address] Fabiola Mina Scheduling Appointments 08/28/2024 2:15 PM CDT Clinical Support [facility] Dermatology [address] [facility] [address] [place] [address] Rash and other nonspecific skin eruption 08/12/2024 Telephone [facility] [address] [place] [address] 4th Floor [address] [place] [address] Fabiola Mina PODIATRY REFERRAL 07/26/2024 2:15 PM CDT Clinical Support [facility] Dermatology [address] [place] [address] [address] [place] [address] Rash and other nonspecific skin eruption 07/03/2024 2:15 PM GEOGRAPHIC INFORMATION SYSTEM SURVEYOR Clinical Support [facility] Dermatology [address] [place] [address] [address] [place] [address] Rash and other nonspecific skin eruption from Last 3 Months Surgical History Surgery Date Site/Laterality Comments HYSTERECTOMY 05/10/2014 - 05/09/2015 TUBAL LIGATION 05/10/2004 - 05/09/2005 ADENOIDECTOMY 05/10/1989 - 05/09/1990 MYRINGOTOMY W/ TUBES 05/10/1989 - 05/09/1990 HEARING ISSUES Medical History Medical History Date Comments Guttate psoriasis Depression Family History Medical History Relation Name Comments Autoimmune disease Neg Hx Relation Name Status Comments Father Mother Social History Tobacco Use Types Packs/Day Years [...] on file Legal Sex Female 5:32 AM GEOGRAPHIC INFORMATION SYSTEM SURVEYOR Gender Identity Female 10/14/2022 10:38 AM CDT Sexual Orientation Straight 10/14/2022 10 :38 AM CDT Obstetrics History Last Filed Vital Signs Vital Sign Reading Time Taken Comments Blood Pressure 156/90 06/20/2024 2:02 PM GEOGRAPHIC INFORMATION SYSTEM SURVEYOR Pulse 112 06/20/2024 2:02 PM GEOGRAPHIC INFORMATION SYSTEM SURVEYOR Temperature 36.8 C (98.2 F) 06/20/2024 2:02 PM GEOGRAPHIC INFORMATION SYSTEM SURVEYOR Respiratory Rate 18 01/13/2024 11:55 PM CDT Oxygen Saturation 100% 01/13/2024 11:55 PM CDT Inhaled Oxygen Concentration - - Weight 82.3 kg (181 lb 6.4 oz) 06/20/2024 2:02 P M GEOGRAPHIC INFORMATION SYSTEM SURVEYOR Height 162.6 cm (5' 4 ) 06/20/2024 2:02 PM GEOGRAPHIC INFORMATION SYSTEM SURVEYOR Body Mass Index 31.14 06/20/2024 2:02 PM GEOGRAPHIC INFORMATION SYSTEM SURVEYOR Plan of Treatment Health Maintenance Due Date Last Done Comments Albumin Creatinine Ratio, Urine 1976 Colon Cancer Screening-Colonoscopy 1976 Depression Screening 1976 Hemoglobin A1C 1976 Dilated Eye Exam 1976 Foot Exam 1976 DTaP/Tdap/Td Vaccine (1 - Tdap) 1987 Regular Well Visit/Exam 18-64 1994 Pneumococcal vaccine <65 (1 of 2 - PCV) 1995 Influenza Vaccine (Season Ended) 2025 Lipid Panel 04/25/2025 04/25/2024 eGFR 06/20/2025 06/20/2024, 0210/2022, 01/24/2017 Breast Cancer Screening-Mammogram 09/02/2025 09/02/2024, 09/02/2024, 08/16/2015 Hepatitis B Screening Completed 07/18/2022 Hepatitis C Screening Completed 07/22/2022 , 07/22/2022, 07/18/2022 Procedures Procedure Name Priority Date/Time Associated Diagnosis Comments PHOTOTHERAPY TREATMENT Routine 3:01 PM CDT Rash and other nonspecific [...] eruption PHOTOTHERAPY TREATMENT Routine 5 2:38 PM GEOGRAPHIC INFORMATION SYSTEM SURVEYOR Rash and other nonspecific skin eruption COMPREHENSIVE METABOLIC PANEL Routine 06/20/2024 2:57 PM GEOGRAPHIC INFORMATION SYSTEM SURVEYOR Psoriasis Psoriatic arthritis (HCC) HEPATITIS C ANTIBODY Routine 07/18/2022 12:36 PM GEOGRAPHIC INFORMATION SYSTEM SURVEYOR Guttate psoriasis from Last 3 Months or Most Recently Relevant to Health Maintenance Results * Phototherapy Treatment - (09/08/2024 3:01 PM CDT) Result Mega Stanford MD PhD DERM PROCEDURE ORDERAB LES Final Result * Phototherapy Treatment - (09/06/2024 2:31 PM CDT) Result Mega Stanford MD PhD [...] * Phototherapy Treatment - (07/03/2024 2:38 PM GEOGRAPHIC INFORMATION SYSTEM SURVEYOR) Result Mega Stanford MD PhD DERM PROCEDURE ORDERAB LES Final Result * (ABNORMAL) Comprehensive metabolic panel (06/20/2024 2:57 PM GEOGRAPHIC INFORMATION SYSTEM SURVEYOR) Pathologist [facility] Total Protein 7.9 6.1 - 8.4 g/dL [...] [facility] Blood 06/20/2024 2:57 PM GEOGRAPHIC INFORMATION SYSTEM SURVEYOR 06/20/2024 3:18 PM GEOGRAPHIC INFORMATION SYSTEM SURVEYOR us Elijah Lombardo MD PhD LAB BLOOD ORDERABLE S Final Result [facility] * (ABNORMAL) Hepatitis C antibody (07/18/2022 12:36 PM GEOGRAPHIC INFORMATION SYSTEM SURVEYOR) Hep C Ab REACTIVE( A) NON-REACT ERIC [facility] SIGNAL TO CUT-OFF >11.00(H) <1.00 [facility] Comment: Based on this result, the sample will be tested for HCV RNA by a Nucleic Acid Amplification Test (NAAT) to determine if the patient has a current active infection. Blood 07/18/2022 12:3 6 PM GEOGRAPHIC INFORMATION SYSTEM SURVEYOR 07/18/2022 12:39 PM GEOGRAPHIC INFORMATION SYSTEM SURVEYOR Narrative [facility] - 07/22/2022 1:31 AM CDT FASTING:YES FASTING: YES Odilia Tomas MD LAB MICROBIOLOGY - GENERAL ORDERABLES Final Result [facility] [address] [place] [address] from Last 3 Months or Most Recently Relevant to Health Maintenance Insurance [facility] Care Teams Box Shook Patcher Relationship Specialty Start Date End Date Marybeth Rueda MD [address] [place] [address] PCP - General Family Medicine 01/14/24
--- OUTSIDE RECORDS SUMMARY | 2024-09-27 03:04 | XMS_ITS | Encounter Summary ---
Author Organization [facility] Address [address] [place] [address] Phone Care Team Providers Care Regional Engagement Consultant Name Role Phone [place] Marizol Calabrese UTILIZATION MANAGEMENT MANAGER Unavailable Unavailab Jasvir Anthony MD Unavailable Martin Ybarra MD Unavailable Danae Wu APRN, [employer] Unavailable Joyce Canas APRN, [employer] Primary Care Provider [phone]- [phone] Encounter Details Date Type Department Care Team (Late st Contact Info) Description 09/01/2024 Results Follow-Up [facility] - Gastroenterology - [place] [address] [place] [address] Danae Wu APRN, ANA[employer]LL[employer] [address] [place] [address] HEPATITIS C RNA QUANT PCR VIRAL LOAD Social History Tobacco Use Types Packs/Day Years Used Date Smoking Tobacco: Every Day Cigarettes 0.4 32.4 Started: 1992 Smokeless Tobacco: Never Alcohol Use Standard Drinks/Week Comments Not Currently 0 (1 standard drink = 0.6 oz pure alcohol) Patient just [facility] at [facility] Last 2022 [facility] Utilities Answer Date Recorded In the past 12 months has [facility] [place], oil, or water [employer] threatened to shut off services in your home? No 05/31/2024 Social Connection and Isolation Panel [NHANES] A nswer Date Recorded In a typical week, how many times do you talk on the phone with family, friends, or neighbors? Once a week 05/31/2024 How often do you get together with friends or re latives? Never 05/31/2024 How often do you attend jainism or mu-ism serv ices? Never 05/31/2024 Do you belong to any clubs o r organizations such as jainism groups, unions, fraternal or athletic groups, or school groups? No 05/31/2024 How often do you attend meet ings of the clubs or organizations you belong to? Never 05/31/2024 Are you , , di vorced, , never , or living with a partner? Never 05/31/2024 AUDIT-C Answer Date Recorded Q1: How often do you have a drink containing alcohol? Never 05/31/2024 Q2: How many drinks containi ng alcohol do you have on a typical day when you are drinking? Patient does not drink Q3: How often do you have si x or more drinks on one occasion? Never 05/31/2024 Overall Financial Resource Strain (CARDIA) Answe r Date Recorded How hard is it for you to pa y for the very basics like food, housing, medical care, and heating? Very hard 05/31/2024 PHQ-2 Answer Date Recorded Total Score - Questions 1-9 8 05/11 [facility] - Occupational Stress Questionnaire Answer Date Recorded Do you feel stress - tense, restless, nervous, or anxious, or unable to sleep at night because your mind is troubled all the time - these days? Very much 05/31/2024 Exercise Vital Sign Answer Date Recorde d On average, how many days pe r week do you engage in moderate to strenuous exercise (like a brisk walk)? 4 days 05/31/2024 On average, how many minutes do you engage in exercise at this level? 30 min 05/31/2024 Hunger Vital Sign Answer Date Recorded Within the past 12 months, y ou worried that your food would run out before you got the money to buy more. Often true 05/31/19 25 Within the past 12 months, t he food you bought just didn't last and you didn't have money to get more. Often true 05/31/2024 PRAPARE - Transportation Answer Date Re corded In the past 12 months, has l ack of transportation kept you from medical appointments or from getting medications? No 05/11 In the past 12 months, has l ack of transportation kept you from meetings, work, or from getting things needed for daily living? No 05/31/2024 Housing Stability Vital Sign Answer Corey e Recorded In the last 12 months, was t here a time when you were not able to pay the mortgage or rent on time? Yes 06/14/2023 In the last 12 months, how many places have you lived? 3 06/14/2023 In the last 12 months, was t here a time when you did not have a steady place to sleep or slept in a skilled nursing (including now)? Yes 06/14/2023 Housing Stability Vital Sign Answer Corey e Recorded In the last 12 months, was t here a time when you were not able to pay the mortgage or rent on time? Yes 05/31/2024 In the past 12 months, how m any times have you moved where you were living? 3 05/31/2024 At any time in the past 12 m [facility], were you homeless or living in a skilled nursing (including now)? Yes 05/31/2024 Sexually Active Control Partners Comments Not Currently Comments No Sex and Gender Information Value Date Recorded Sex Assigned at Female 05/14/2023 9:16 PM LOOPING INSPECTOR Legal Sex Female 11:25 PM CDT Gender Identity Female 05/14/2023 9:16 PM LOOPING INSPECTOR Sexual Orientation Straight 05/14/2023 9: 16 PM LOOPING INSPECTOR documented as of this encounter Plan of Treatment Upcoming Encounters Date Type Department Care Team (Late st Contact Info) Description 10/06/2024 11:30 AM CDT [facility] [place] [address] Danae Wu APRN, ANALY[employer] INTELLIGENCE [address] [place] [address] 10/10/2024 2:00 PM CDT Office Visit [facility] - Endocrinology - [place] [address] [place] [address] Martin Ybarra MD [address] [phone] 11/21/2024 4:45 PM CDT [facility] - [place] [address] [place] [address] Joyce Canas APRN, A[employer]LL[employer] [address] [place] [address] documented as of this encounter Goals Goal Patient Goal Type Associated Problems Recent Progress Patient-Stated? Author Find Help in My Community-for housing, transportation, and food access Patient Goals On track( 025 10:44 AM CDT) Marizol Barnes LSW Note: Follow Up Date the month of 11/01 - follow-up on any referrals for help I am given SUKHWINDER MANN has given you contact information for [facility], local food pantries, and for [employer] Transportation. Patient will follow up with these resources for assistance. Notes: 06/21/23- Unable to reach, sent Amber[employer] message 06/30/23- Patient confirms she was able to use gas card to get lab work done and bus tokens to get to mental health appointment later that week. She has used resources provided to go to [place] to use showers and laundry and use local food pantry. [facility] and is again on their skilled nursing list. SUKHWINDER MANN provided today phone numbers for housing authorities in [facility], and [facility] as patient is open to moving out of the area if she can get housing there. Again gave patient phone number for [employer] transportation so she can call and get bus passes to go to upcoming medical appointments. 07/07/23 - Patient has a meeting with a landlord that needs help cleaning his rental units and may agree to give her a place to live in exchange for work. She is asking who can help her with SS disability forms, gave her name of [employer] law office. No other questions or concerns at this time. 08/05/2023 - Patient states she continues to live in her storage unit. She states she is 10th in line with [employer] hotline. She is open to applying for housing in counties outside [place] but has had trouble getting [facility] and [facility] housing to call her back. SUKHWINDER MANN agreed to get housing applications for [facility] and [facility] and then set date to help patient complete applications. SUKHWINDER MANN will also email patient updated landlord list ([email or web address]). 08/19/23 - Patient met with SUKHWINDER MANN in person at [facility]. Completed housing pre-applications for [facility], and [facility]. SUKHWINDER MANN faxed [facility] application, fax was successful. SUKHWINDER MANN mailed application to [facility] in [place] and gave patient original application for [facility] with instructions to call and make appointment to have interview and turn in application. Patient was also give contact numbers for [facility] and [facility] Authorities to call and follow up on applications. documented as of this encounter Visit Diagnoses Not on filedocumented in this encounter Additional Health Concerns Assessment Noted Time PHQ-9 Depression Total Score: 8 05/31/19 25 3:57 PM LOOPING INSPECTOR documented as of this encounter Care Teams Regional Engagement Consultant Relationship Specialty Start Date End Date Joyce Canas, AMMUNITION SPECIALIST, [employer] [address] [place] [address] PCP - General Certified Nurse Practitioner 07/25/24 Marizol Boyle, MAYI AL Track Fitter [employer] Letter Carrier 06/03/23 Jasvir Quintero MD [address] [address] Consulting Physician Colon and Rectal Surgery 07/09/23 Martin Ybarra MD #[address] [phone] Consulting Physician Endocrinology 07/15/23 Danae Wu APRN, [employer] [address] [place] [address] Nurse Practitioner Advanced Practice Nurse 09/01/23 documented as of this encounter
--- OUTSIDE RECORDS SUMMARY | 2024-09-27 03:04 | XMS_ITS | Clinical Summary ---
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 [facility]. BREAST TISSUE:The breasts are heterogeneously dense, which may obscure small masses. FINDINGS: RIGHT DIAGNOSTIC MAMMOGRAM: Additional views of the right breast were obtained. The asymmetry in the subareolar right breast and focal asymmetries in the upper outer right breast anteriorly partially efface on the additional views. Further evaluation was obtained with sonography. TARGETED RIGHT BREAST ULTRASOUND: At the 10 o'clock position of the right breast, 2-3 cm from the nipple, there is heterogeneous breast tissue which is likely fibrocystic change. At the 9:00 a.m. subareolar right breast, a 9 mm hypoechoic focus is also seen within an area of heterogeneous tissue which is also likely an area of fibrocystic change. These findings will be classified as probably benign. IMPRESSION: OVERALL STUDY BIRADS: CATEGORY 3: PROBABLY BENIGN Findings in the right breast are probably benign. A follow-up mammogram and an ultrasound in 6 months are recommended to demonstrate stability. The results and recommendations were discussed with the patient. Electronically signed by: Tarik Bernard M.D. ll/:09/15/2024 11:43:22 Wood Model Maker(s): Mile Francis, RT(R)(M), [facility]; MICHELLE Us, [facility] letter sent: Birad 3 Followup Reading location: [facility] OVERALL STUDY BIRADS: Category 3: Probably Benign Procedure Note Tarik Bernard MD - 09/15/2024 - NIKOLAI DIAG RIGHT UNILATERAL DIGITAL W CAD W RICKY - NIKOLAI US BREAST LIMITED RT UNILATERAL RIGHT DIGITAL DIAGNOSTIC MAMMOGRAM 3D/2D WITH CAD WITH MEDIOLATERAL MEDIOLATERAL OBLIQUE CRANIOCAUDAL ROLLED LATERAL ROLLED MEDIAL SPOT COMPRESSION AND RIGHT ULTRASOUND: 09/15/2024 The study was acquired using digital technology and interpreted from soft copy. Current study was also evaluated with ICAD version 7.2. 2D digital mammographic views, as well as 3D digital tomosynthesis were performed in the CC and MLO projections. CLINICAL: Diagnostic study. Patient returns to evaluate multiple focal asymmetries in the right breast, as well as an right asymmetry on the CC view only. No personal history of cancer. Maternal grandmother and maternal aunt had breast cancer. COMPARISONS: Comparison is made to exams dated: 08/16/2015 and 09/02/2024 [facility]. BREAST TISSUE:The breasts are heterogeneously dense, which may obscure small masses. FINDINGS: RIGHT DIAGNOSTIC MAMMOGRAM: Additional views of the right breast were obtained. The asymmetry in the subareolar right breast and focal asymmetries in the upper outer right breast anteriorly partially efface on the additional views. Further evaluation was obtained with sonography. TARGETED RIGHT BREAST ULTRASOUND: At the 10 o'clock position of the right breast, 2-3 cm from the nipple, there is heterogeneous breast tissue which is likely fibrocystic change. At the 9:00 a.m. subareolar right breast, a 9 mm hypoechoic focus is also seen within an area of heterogeneous tissue which is also likely an area of fibrocystic change. These findings will be classified as probably benign. IMPRESSION: OVERALL STUDY BIRADS: CATEGORY 3: PROBABLY BENIGN Findings in the right breast are probably benign. A follow-up mammogram and an ultrasound in 6 months are recommended to demonstrate stability. The results and recommendations were discussed with the patient. Electronically signed by: Tarik Bernard M.D. ll/:09/15/2024 11:43:22 Wood Model Maker(s): RT Glendy(R)(M), [facility]; Olga Ann RDMS OBJEANNINE, [facility] letter sent: Birad 3 Followup Reading location: [facility] OVERALL STUDY BIRADS: Category 3: Probably Benign us Joyce Canas APRN, RIVET TOSSER IM MAMMO ORDERABLES Final Result * NIKOLAI SCREENING BILATERAL DIGITAL W CAD W RICKY (09/02/2024 12:14 PM CDT) Anatomical Region Laterality Modality breast Bilateral Mammography 09/02/2024 12:1 5 PM CDT Narrative 09/04/2024 2:47 PM CDT - NIKOLAI SCREENING BILATERAL DIGITAL W CAD W RICKY BILATERAL DIGITAL SCREENING MAMMOGRAM 3D/2D WITH CAD WITH MEDIOLATERAL OBLIQUE CRANIOCAUDAL: 09/02/2024 The study was acquired using digital technology and interpreted from soft copy. Current study was also evaluated with ICAD version 7.2. 2D digital mammographic views, as well as 3D digital tomosynthesis were performed in the CC and MLO projections. CLINICAL: Routine screening. Patient has no complaints. No personal history of cancer. Maternal aunt and grandmother had breast cancer. COMPARISONS: Comparison is made to exam dated: 08/16/2015 [facility]. BREAST TISSUE:The breasts are heterogeneously dense, which may obscure small masses. FINDINGS: There are multiple focal asymmetries in the right breast superior lateral quadrant anterior depth. There also is an asymmetry in the right breast sub-areolar depth central to the nipple seen on the craniocaudal view only. No other significant masses, calcifications, or other findings are seen in either breast. IMPRESSION: INCOMPLETE: NEED ADDITIONAL IMAGING EVALUATION The multiple focal asymmetries in the right breast superior lateral quadrant anterior depth are indeterminate. Additional views as well as an ultrasound are recommended. The asymmetry in the right breast sub-areolar depth central to the nipple seen on the craniocaudal view only is indeterminate. Additional views with possible ultrasound are recommended. An immediate follow-up is recommended. A letter will be sent to the patient with these results. Electronically signed by: Jane villegas/suzanna:09/04/2024 12:34:05 Wood Model Maker(s): RT Glendy(R)(M), [facility] letter sent: Additional Imaging Reading location: [facility] Mammogram BI-RADS: Category 0: Incomplete: Need Additional Imaging Evaluation Procedure Note Jane Singh MD - 09/04/2024 - NIKOLAI SCREENING BILATERAL DIGITAL W CAD W RICKY BILATERAL DIGITAL SCREENING MAMMOGRAM 3D/2D WITH CAD WITH MEDIOLATERAL OBLIQUE CRANIOCAUDAL: 09/02/2024 The study was acquired using digital technology and interpreted from soft copy. Current study was also evaluated with ICAD version 7.2. 2D digital mammographic views, as well as 3D digital tomosynthesis were performed in the CC and MLO projections. CLINICAL: Routine screening. Patient has no complaints. No personal history of cancer. Maternal aunt and grandmother had breast cancer. COMPARISONS: Comparison is made to exam dated: 08/16/2015 [facility]. BREAST TISSUE:The breasts are heterogeneously dense, which may obscure small masses. FINDINGS: There are multiple focal asymmetries in the right breast superior lateral quadrant anterior depth. There also is an asymmetry in the right breast sub-areolar depth central to the nipple seen on the craniocaudal view only. No other significant masses, calcifications, or other findings are seen in either breast. IMPRESSION: INCOMPLETE: NEED ADDITIONAL IMAGING EVALUATION The multiple focal asymmetries in the right breast superior lateral quadrant anterior depth are indeterminate. Additional views as well as an ultrasound are recommended. The asymmetry in the right breast sub-areolar depth central to the nipple seen on the craniocaudal view only is indeterminate. Additional views with possible ultrasound are recommended. An immediate follow-up is recommended. A letter will be sent to the patient with these results. Electronically signed by: Jane villegas/suzanna:09/04/2024 12:34:05 Wood Model Maker(s): RT Glendy(R)(M), [facility] letter sent: Additional Imaging Reading location: [facility] Mammogram BI-RADS: Category 0: Incomplete: Need Additional Imaging Evaluation Joyce Canas COMMERCIAL LEASING AGENT, RIVET TOSSER IMG MAMMO ORDERABLES Final Result * UR MICROALBUMIN/CREATININE RATIO RANDOM (09/01/2024 11:37 AM CDT) RAN UR MICROALBUMIN <0.50 mg/dL 09/01/2024 1:30 PM CDT [facility] Comment:No reference range h as been established. Consider Clinical Correlation. CREATININE URINE 52.5 mg/dL 09/02/19 1:30 PM CDT [facility] Comment:No reference range h as been established. Consider Clinical Correlation. ALB/CREAT RATIO 1:30 PM CDT [facility] Comment:Unable to calculate due to urine microalbumin concentration less than 0.5 mg/dL Urine Non-Phlebotomy Collection / Unknown 09/01/2024 11:37 AM CDT 09/01/2024 12:59 PM CDT Marybeth Rueda MD URINE ORDERABLES Final Res ult Performing Organization Address [facility] Co de Phone Number [facility] [address] [place] [address] * HEPATITIS C RNA QUANT PCR VIRAL LOAD (08/29/2024 2:32 PM CDT) [facility] HCV RNA QUANT PCR NON DETECTED NON DETECTED 08/31/2024 9:41 PM CDT [facility] QT LOG10 08/31/2024 9:41 PM CDT [facility] Comment: LOG 10 is not applicable. This test was performed using BRADY 5800 Real Time PCR. Blood Venipuncture / Unknown 08/29/2024 2:32 PM CDT 08/29/2024 2:47 PM CDT Danae Wu COMMERCIAL LEASING AGENT, RIVET TOSSER IMMUNOLOGY ORDERA BLES Final Result Performing Organization Address [facility] Co de Phone Number [facility] [address] [place] [address], [place] * (ABNORMAL) CMP (COMPREHENSIVE METABOLIC PANEL) (08/29/2024 2:32 PM CDT) [facility] SODIUM 139 136 - 145 mmol/L 08/29/2024 3:19 PM CDT [facility] POTASSIUM 4.2 3.5 - 5.1 mmol/L 08/29/2024 3:19 PM CDT [facility] CHLORIDE 106 98 - 107 mmol/L 08/29/2024 3:19 PM CDT [facility] CO2, VENOUS 23 22 - 30 mmol/L 08/29/2024 3:19 PM CDT [facility] ANION GAP 14.2 <18.0 mmol/L 08/29/2024 3:19 PM T [facility] GLUCOSE 270(H) 70 - 99 mg/dL 08/29/2024 3:19 PM [facility] BUN 18 5 - 18 mg/dL 08/29/2024 3:19 PM [facility] CREATININE, BLOOD 1.07(H) 0.60 - 1.00 mg/dL 08/29/2024 3:19 PM T [facility] BUN/CREATININE RATIO 17 12 - 20 ratio 08/29/2024 3:19 PM [facility] TOTAL PROTEIN 8.3(H) 6.0 - 8.0 g/dL 08/29/2024 3:19 PM [facility] ALBUMIN 4.3 3.5 - 5.0 g/dL 08/29/2024 3:19 PM [facility] A/G RATIO 1.1 1.0 - 2.2 08/29/2024 3:19 PM [facility] CALCIUM 9.5 8.7 - 10.5 mg/dL 08/29/2024 3:19 PM [facility] T BILI 0.3 0.2 - 1.2 mg/dL 08/29/2024 3:19 PM [facility] SGOT (AST) 38 <43 U/L 08/29/2024 3:19 PM [facility] SGPT (ALT) 40 <56 U/L 08/29/2024 3:19 PM [facility] ALKALINE PHOSPHATASE 99 40 - 150 U/L 08/29/2024 3:19 PM [facility] IS THE PATIENT REQUIRED TO BE FASTING? No 08/29/2024 3:19 PM [facility] GFR, ESTIMATED >60 >=60 08/29/2024 3:19 PM [facility] Comment: Creatinine Clearance is the preferred criteria for selecting drug dose adjustments in renally impaired patients. The GFR is provided as additional pertinent clinical information. GFR is reported in mL/min/1.73 sq m. Calculation based on the Chronic Kidney Disease Epidemiology Collaboration (CKD- EPI) equation refit without adjustment for race. GFR, EST. >60 >=60 025 3:19 PM CDT [facility] GFR, EST. NONAFRICAN 55(L) >=60 08/29/2024 3:19 PM CDT [facility] Blood Venipuncture / Unknown 08/29/2024 2:32 PM CDT 08/29/2024 2:48 PM CDT us Martin Ybarra MD CHEMISTRY ORDERABLES Final Resul t [facility] [address] [place] [address] * (ABNORMAL) POCT GLYCOSYLATED HEMOGLOBIN (08/29/2024 1:49 PM CDT) HGB-A1C 9.0(A) 4 - 6 % Blood 08/29/2024 1:49 PM CDT us Martin Ybarra MD POINT OF CARE TESTING (MANUAL) F inal Result from Last 3 Months Insurance MEDICAID [facility] PL[facility] Advance Directives * Full Code (Latest Code Status on File) Date Activated Date Inactivated Comments 05/11/2023 3:22 PM 05/14/2023 5:19 PM CPR-Full Treat ment: FULL ARREST: Attempt Resuscitation/CPR wit intubation and mechanical ventilation. PRE-ARREST: Use entire range of life support measures to stabilize the patient. * Full Code Date Activated Date Inactivated Comments 02/26/2017 5:31 AM 02/26/2017 1:36 PM CPR-Full T reatment: FULL ARREST: Attempt Resuscitation/CPR wit intubation and mechanical ventilation. PRE-ARREST: Use entire range of life support measures to stabilize the patient. Care Teams Basket Maker Relationship Specialty Start Date End Date Joyce Canas COMMERCIAL LEASING AGENT, RIVET TOSSER [id number] [place] [address] PCP - General Certified Nurse Practitioner 07/25/24 Marizol Boyel, MAYI [place] Senior Vice President & General Counsel Senior Patrol Agent 06/03/23 Jasvir Quintero MD [address] [address] Consulting Physician Colon and Rectal Surgery 07/09/23 Martin Ybarra MD [address] [phone] Consulting Physician Endocrinology 07/15/23 Danae Wu APRN, RIVET TOSSER [address] [place] [address] Nurse Practitioner Advanced Practice Nurse 09/01/23
--- NOTE | 2024-09-27 03:10 | ED_ITS ---
HPI - Skin/Abscess/Foreign Bdy General Chief complaint: Skin/Abscess/Foreign Body Stated complaint: rash on face- around someone with MRSA and staph Time Seen by Provider: 09/27/24 02:43 History of Present Illness HPI narrative: Patient presenting with multiple painful skin lesions, she has been having this on and off now for quite a while, has failed multiple rounds of clindamycin and doxycycline, last treatment 2 weeks ago. Seeing a acetylene gas compressor for psoriasis Related Data Home Medications ?Medication ?Instructions ?Recorded ?Confirmed ?Last Taken ?Type triamcinolone acetonide 0.1 % applic topical 07/30/20 Unknown History topical cream Allergies Allergy/AdvReac Type Severity Reaction Status Date / Time Penicillins Allergy Severe Rash, Verified 07/30/20 00:50 throat swells Review of Systems Review of Systems: All systems reviewed & are unremarkable except as noted in HPI and below PMFSH Past Medical History Medical History Anxiety Chronic back pain Depression Surgical History Surgical History H/O adenoidectomy H/O tubal ligation History of hysterectomy Social History Social History Years smoked: 30 Smoking status: Current every day smoker Gender identity (if verbalized by the patient): Female Exam Narrative: EXAMINATION OF ORGAN SYSTEMS/BODY AREAS: Constitutional: Vital signs per nursing GENERAL: Appears tearful HEAD: Normal with no signs of head trauma. EYES: EOMI, conjunctiva normal ENT: Hearing grossly intact LUNGS: Nonlabored breathing. EXT: Normal range of motion SKIN: Multiple areas of skin picking, with 1 indurated area to left upper cheek without much fluctuance NEURO: [Alert and oriented x 3. No gross focal sensory or strength deficits.] PSYCH: Tearful affect Course Vital Signs Vital signs: Vital Signs Temperature 98.4 F 09/27/24 03:19 Pulse Rate 84 09/27/24 03:19 Respiratory Rate 16 09/27/24 03:19 Blood Pressure 137/85 09/27/24 03:19 Pulse Oximetry 99 09/27/24 03:19 Temperature 98.4 F 09/27/24 03:21 Pulse Rate 84 09/27/24 03:21 Respiratory Rate 16 09/27/24 03:21 Blood Pressure 137/85 09/27/24 03:21 Pulse Oximetry 99 09/27/24 03:21 MDM - Skin/Abscess/Foreign Bdy MDM Narrative Medical decision making narrative: MEDICAL DECISION MAKING AND COURSE IN THE ED WITH INTERPRETATION/REVIEW OF DIAGNOSTIC STUDIES: Electronic medical record was reviewed. Patient presented to the ED with complaint of painful skin rash. Vitals [were within acceptable limits]. Physical exam revealed area of tenderness and induration consistent with abscess to her left upper cheek, as well as multiple smaller areas all over her body, without fluctuance that may benefit from drainage. Patient does have diabetes that she admits is poorly controlled. I discussed with patient the importance of trying to get a blood sugar controlled to help prevent these future infections. She has already failed multiple rounds of clindamycin doxycycline, but is still wanting some antibiotic, so I will give her script for Bactrim. Also let her know that at this point she would benefit from specialist such as Dermatology or infectious diseases. The patient is discharged home in stable condition. I have asked the patient to return to the emergency department for worsening pain, worsening and increasing size of skin infection, fevers/chills. The patient is instructed to follow up with [PCP] and dermatology in [2] days. Patient verbalized understanding. Discharge Plan Discharge Clinical Impression: Skin infection Patient Disposition: Home Condition: Stable Instructions: Cellulitis (ED), Abscess (ED) Additional Instructions: Please talk to your doctor about trying to gett your blood sugar under better control, and refer you an infectious diseases specialist. You can always return to the emergency room if your symptoms get worse. Patient Language: Hungarian Prescriptions: New sulfamethoxazole-trimethoprim [Bactrim DS] 800-160 mg tablet 1 tablet PO Q12H Qty: 14 0RF No Action albuterol sulfate [Ventolin HFA] 90 mcg/actuation HFA aerosol inhaler 2 puff INHALATION .Q4 hours PRN (Reason: cough) Qty: 18 0RF triamcinolone acetonide 0.1 % cream 1 applic topical BID Qty: 453.6 0RF triamcinolone acetonide 0.1 % cream TOPICAL sulfamethoxazole-trimethoprim [Bactrim DS] 800-160 mg tablet 1 tablet PO Q12H Qty: 28 0RF fluconazole [Diflucan] 150 mg tablet 150 mg PO Q72H Qty: 2 0RF Follow-up/Referrals: PHYSICIAN,ON SITE COORDINATOR [Primary Care Provider] -
[2024-09-27] MEDS: HYDROcodone/acetaminophen (*CRX) 5-325 MG TABLET 1 TAB PO (03:12)
[2024-09-27 03:19] VITALS: BP 137/85; PULSE 84; RESP 16; TEMP 36.9; O2SAT 99
[2024-09-27 03:21] VITALS: BP 137/85; PULSE 84; RESP 16; TEMP 36.9; O2SAT 99
== END 2024-09-27 03:23 | disposition home or self-care (01) ==
LOC: ANHED 03:02
PROVIDERS: Emergency Provider Emergency Medicine
DX: E11.628 Type 2 diabetes mellitus with other skin complications (principal); L02.01 Cutaneous abscess of face; L40.9 Psoriasis, unspecified; F17.200 Nicotine dependence, unspecified, uncomplicated; Z90.710 Acquired absence of both cervix and uterus
CPT/HCPCS: 99283; A9270

== ENCOUNTER 2025-05-02 16:55 | Emergency (ER) | payer OTHER, SELFPAY ==
[2025-05-02 17:09] VITALS: BP 143/81; PULSE 107; RESP 18; TEMP 37.1; O2SAT 99
[2025-05-02 17:23] LABS: EDCOVIDSCREEN Negative (Negative)
[2025-05-02 17:24] LABS: EDINFLUASCREEN Negative (Negative); EDINFLUBSCREEN Negative (Negative)
--- NOTE | 2025-05-02 17:26 | ED_ITS ---
HPI - General Adult General Chief complaint: Upper Respiratory Infection Stated complaint: sinus Time Seen by Provider: 05/02/25 17:20 Source: patient, RN notes reviewed and old records reviewed Mode of arrival: ambulatory Limitations: no limitations History of Present Illness HPI narrative: 49-year-old female presents to the [facility] with concerns of lost in taste and smell, fatigue, body aches, sore throat for 1-2 days. States that she was in the hospital, just discharged with antibiotics in the people she stays with have COVID-19. Wants testing. Patient also concerned that she has been on lot of antibiotics and now having a ?raging yeast infection. Related Data Home Medications ?Medication ?Instructions ?Recorded ?Confirmed ?Last Taken ?Type triamcinolone acetonide 0.1 % applic topical 07/30/20 Unknown History topical cream atorvastatin 20 mg tablet mg 05/02/25 Unknown History dextroamphetamine-amphetamine 30 05/02/25 Unknown Hi story mg tablet empagliflozin 25 mg tablet mg 05/02/25 Unknown Histor y (Jardiance) folic acid 1 mg tablet 05/02/25 Unknown History hydroxyzine HCl 25 mg tablet mg 05/02/25 Unknown Hist ory insulin glargine 100 unit/mL (3 unit subcut 05/02/25 Unknown History mL) subcutaneous pen (Lantus Solostar U-100 Insulin) insulin lispro 100 unit/mL subcut 05/02/25 Unknown Hi story subcutaneous pen insulin lispro protamine-lispro subcut 05/02/25 Unkno wn History 100 unit/mL (75-25) subcutaneous pen metformin 1,000 mg tablet mg 05/02/25 Unknown History methotrexate sodium 2.5 mg tablet mg 05/02/25 Unknown History olanzapine 10 mg-samidorphan 10 mg tablet PO 05/02/25 Unknown History tablet (Lybalvi) oxybutynin chloride 5 mg tablet mg 05/02/25 Unknown H istory prednisone 10 mg tablet mg 05/02/25 Unknown History quetiapine 100 mg tablet mg 05/02/25 Unknown History Allergies Allergy/AdvReac Type Severity Reaction Status Date / Time Penicillins Allergy Severe Rash, Verified 05/02/25 17:09 throat swells Review of Systems Review of Systems: All systems reviewed & are unremarkable except as noted in HPI and below Constitutional: Constitutional: Reports as per HPI and Reports fatigue ENT: Reports sore throat Cardiovascular: Cardiovascular: Reports no additional cardiovascular complaints, Denies chest pain and Denies dyspnea Respiratory: Respiratory: Reports as per HPI, Denies chest congestion, Reports cough and Denies dyspnea Musculoskeletal: Musculoskeletal: Reports no additional musculoskeletal c omplaints Integumentary/Breasts: Skin/Breast: Reports system reviewed and no additional complaints, except as docu PMFSH Past Medical History Medical History Anxiety Chronic back pain Depression Surgical History Surgical History H/O adenoidectomy H/O tubal ligation History of hysterectomy Social History Social History Years smoked: 30 Smoking status: Current every day smoker Gender identity (if verbalized by the patient): Female Comments At the time of my signature, I reviewed and agree with the nursing past medical, surgical, social, and family history. There is no relevant family history pertinent to the patient complaint. Exam Const: General: cooperative, healthy appearing, comfortable, no acute d istress, well developed, alert and well nourished Nutritional Appearance: well nourished Orientation/consciousness: patient oriented x3 Limitations: no limitations HENMT: Head: normal to inspection Ears: hearing grossly normal bilaterally, external ears normal, TM's normal bilaterally, EAC's normal, mastoids normal and no periauricular adenopathy Mouth: Yes Normal oral and palatal mucosa present, Yes lip normal, Yes tongue normal and Yes moist mucous membranes Throat: posterior oropharynx normal, uvula midline and no uvular edema Eyes: General: appearance normal, both eyes and all related structures Alignment and Position: alignment normal Neck: Neck: normal visual inspection, full ROM, no lymphadenopathy and no meningeal signs Chest: Chest palpation & inspection: normal inspection of the chest Resp: Effort & Inspection: normal respiratory effort and able to speak in complete sentences Auscultation: clear to auscultation bilaterally, no crackles, no rales, no rhonchi and no wheezes Cardio: Rate: regular rate Skin: General skin exam: normal color and no rashes or lesions noted Neuro: General: patient oriented x3, gait normal, moves all extremities and no meningeal signs Cognition (Neuro): normal cognition Speech: normal speech Gait exam (Neuro): Normal gait present Extrem: General: normal to inspection, full ROM, capillary refill normal and normal gait Psych: Appearance: grossly normal and well kempt Mental Status: mental status grossly normal Speech and movement: Normal speech and movement present and Clear speech present Affect: normal affect Attitude: cooperative Course Course Level of Care: Express Care Visit Vital Signs Vital signs: Vital Signs Temperature 98.8 F 05/02/25 17:09 Pulse Rate 107 H 05/02/25 17:09 Respiratory Rate 18 05/02/25 17:09 Blood Pressure 143/81 H 05/02/25 17:09 Pulse Oximetry 99 05/02/25 17:09 Oxygen Delivery Room Air 05/02/25 17:09 Temperature 98.8 F 05/02/25 17:09 Pulse Rate 107 H 05/02/25 17:09 Respiratory Rate 18 05/02/25 17:09 Blood Pressure 143/81 H 05/02/25 17:09 Pulse Oximetry 99 05/02/25 17:09 Oxygen Delivery Room Air 05/02/25 17:09 reviewed MDM MDM Narrative Medical decision making narrative: Patient sitting in exam. Patient is nontoxic vitals are stable patient presents with concerns for COVID-19 due to exposure. Flu COVID are negative in clinic. Patient in no acute distress. No acute findings noted on exam. Patient is requesting that she has that she get a treatment for a yeast infection Discharge instructions reviewed with patient, as well as provided in writing per nursing staff. The instructions also include specific and strict return/GO TO THE ER as well as f/u information. All questions have been answered, and the patient deny any further questions with discharge and discharge plan. Some parts of this dictation were generated by voice recognition software and may contain typographical and/or grammatical inaccuracies. Differential Diagnosis Differential Diagnosis: Differential diagnostic considerations for upper respiratory infection include upper respiratory infection, croup, otitis media, sinusitis, viral infection, bronchitis, influenza, pharyngitis, strep, uvulitis.? Lab Data Labs: Lab Results 05/02/25 Range/Units 17:20 POC Influenza A Ag Negative (Negative) POC Influenza B Ag Negative (Negative) POC SARS CoV-2 Ag Negative (Negative) Reviewed Discharge Plan Discharge Clinical Impression: Yeast infection, Close exposure to 2019 novel coronavirus Patient Disposition: Home Condition: Stable Instructions: Yeast Infection (ED) Additional Instructions: Use Monistat daily per package instructions Takes Diflucan 1 time, if symptoms do not improve follow-up with primary or produce manager provider For worsening symptoms go directly to the emergency room Patient Language: Tajik Prescriptions: New fluconazole 150 mg tablet 150 mg PO ONCE Qty: 1 0RF Rx Instructions: as a single dose No Action albuterol sulfate [Ventolin HFA] 90 mcg/actuation HFA aerosol inhaler 2 puff INHALATION .Q4 hours PRN (Reason: cough) Qty: 18 0RF triamcinolone acetonide 0.1 % cream 1 applic topical BID Qty: 453.6 0RF prednisone 10 mg tablet atorvastatin 20 mg tablet quetiapine 100 mg tablet dextroamphetamine-amphetamine 30 mg tablet methotrexate sodium 2.5 mg tablet metformin 1,000 mg tablet folic acid 1 mg tablet hydroxyzine HCl 25 mg tablet oxybutynin chloride 5 mg tablet insulin lispro 100 unit/mL insulin pen SUBCUT insulin lispro protamin-lispro 100 unit/mL (75-25) insulin pen SUBCUT insulin glargine [Lantus Solostar U-100 Insulin] 100 unit/mL (3 mL) insulin pen SUBCUT Jardiance 25 mg tablet Lybalvi 10-10 mg tablet PO triamcinolone acetonide 0.1 % cream TOPICAL Follow-up/Referrals: UNKNOWN,DOCTOR [Primary Care Provider] Time of Disposition: 17:28
== END 2025-05-02 17:35 | disposition home or self-care (01) ==
PROVIDERS: Emergency Provider Nurse Practitioner
DX: B37.31 Acute candidiasis of vulva and vagina (principal); Z20.822 Contact with and (suspected) exposure to COVID-19
CPT/HCPCS: 87426; 87804; 99213; G0463